=== PATIENT | male | born 1960 ===

== ENCOUNTER 2024-10-04 06:22 | Day surgery (SDC) | payer MEDICARE, SELFPAY | END 2024-10-04 12:07 | disposition home or self-care (01) | LOC: GI 06:22 | PROVIDERS: ATTENDING PHYSICIAN Internal Medicine Gastroenterology | DX: R19.4 Change in bowel habit (principal); K55.20 Angiodysplasia of colon without hemorrhage; K64.8 Other hemorrhoids; R12 Heartburn; K31.89 Other diseases of stomach and duodenum; K22.89 Other specified disease of esophagus; Z87.19 Personal history of other diseases of the digestive system | CPT/HCPCS: 45380; 43239; 88305; 87220; 88342 ==